=== PATIENT | female | born 1995 | race African-American/Black ===

== ENCOUNTER 2018-11-13 08:50 | Observation (INO) | payer BC ==
--- NOTE | 2018-11-13 09:15 | PDOC ---
History of Present Illness - General Chief Complaint: Abscess Boil Stated Complaint: BLISTERS Time Seen by Provider: 11/13/18 09:09 History Source: Patient Exam Limitations: No Limitations - History of Present Illness Initial Comments: 11/13/18 09:17 patient came to emergency department for evaluation of blisters/ abscesses to her groin. Suffers from hydroadenitis, but has not had any neck sclerae outbreak in some months. States uses a depilatory cream which frequently causes small folliculitis and small cellulitic lesions that generally break and clear on their own. States onset of to vulvar abscesses started a proximally 2 weeks ago but an additional 1 to the right side under her groin started a proximally 5 days ago and all of them have for aggressively worsened,'s more swollen, and more painful. Is been hot soaking and using some herbal creams with minimal resolved Timing/Duration: unsure Severity: mild, moderate Associated Symptoms: reports: fever/chills, headaches Past History - Travel Traveled outside of the country in the last 30 days: No Close contact w/someone who was outside of country & ill: No - Past Medical History Allergies/Adverse Reactions: Allergies Allergy/AdvReac Type Severity Reaction Status Date / Time No Known Allergies Allergy Verified 11/13/18 08:54 Home Medications: Ambulatory Orders NK [No Known Home Medication] 11/13/18 Asthma: Yes COPD: No - Suicide/Smoking/Psychosocial Hx Smoking History: Never smoked Information on smoking cessation initiated: No Hx Alcohol Use: No Drug/Substance Use Hx: No Review of Systems - Review of Systems Able to Perform ROS?: Yes Is the patient limited Maltese proficient: Yes Constitutional: Yes: Symptoms Reported, See HPI HEENTM: Yes: Symptoms Reported Respiratory: Yes: Symptoms reported, See HPI, Cough, Wheezing Integumentary: Yes: Symptoms Reported, See HPI, Lesions All Other Systems: Reviewed and Negative *Physical Exam - Vital Signs Last Vital Signs Temp Pulse Resp BP Pulse Ox 98.5 F 95 H 17 123/74 100 11/13/18 08:53 11/13/18 08:53 11/13/18 08:53 11/13/18 08:53 11/13/18 08:53 - Physical Exam General Appearance: Yes: Nourished, Appropriately Dressed, Apparent Distress, Mild Distress, Moderate Distress HEENT: positive: MARYAN, Normal ENT Inspection, TMs Normal, Pharynx Normal Neck: positive: Supple, Lymphadenopathy (R), Lymphadenopathy (L). negative: Tender Respiratory/Chest: positive: Decreased Breath Sounds, Rhonchi, Wheezing. negative: Lungs Clear Female Pelvic Exam: positive: other. negative: normal external exam Gastrointestinal/Abdominal: positive: Normal Bowel Sounds, Soft. negative: Guarding, Rebound Musculoskeletal: positive: Normal Inspection Extremity: positive: Normal Capillary Refill Integumentary: positive: Warm, Erythema, Swelling, Other (patient with multiple lesions in various stages of healing, 1 under her umbilicus that is scabbed and approximately 2 cm nonfluctuant. Larger area to the right vulvar/suprapubic with cellulitis and exquisite tenderness non-pointing but Central lesion with some scabbing. Measuring approximately 7 cm induration with an adjacent lesion that is not pointing extending across top part of pubis bone area. 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 Josey Ugalde performed a bedside ultrasound noting 2 distinct areas of abscess subcutaneous to vulva, recommends I and D, Admnission for IV Abx. and Surgery consult. Dr. Cavanaugh/[facility] consulted who deferred to OB/ CLASSROOM MONITOR due to the location of the abscess. Dr. Luna notified who agreed to perform consult and have patient admitted to hospitalist service. Recommended to add Flagyl for IV antibiotics in addition to Clindamyosin. Patient was updated to plan and hospitalist [employer] microblogged. *DC/Admit/Observation/Transfer Diagnosis at time of Disposition: Cellulitis of groin, right - Discharge Dispostion Condition at time of disposition: Stable Decision to Admit order: Yes - Referrals - Patient Instructions - Post Discharge Activity
[2018-11-13] MEDS ORDERED: KETOROLAC TROMETHAMINE 30 MG/1 ML VIAL IVPUSH ONE (09:37)
[2018-11-13] MEDS ORDERED: CLINDAMYCIN 600MG PREMIX IVPB 600 MG/50 ML BAG IVPB ONE ×2 (09:37→09:47)
[2018-11-13] MEDS ORDERED: KETOROLAC TROMETHAMINE 30 MG/1 ML VIAL ONE (09:47)
[2018-11-13 10:12] LABS: BASO % 0.5 % (0-2.0); HEMATOCRIT 38.1 % (32.4-45.2); HEMOGLOBIN 13.5 GM/dL (10.7-15.3); LYMPH % 19.2 % (8-40); MCH 26.2 pg (25.7-33.7); MCHC 35.6 g/dl (32.0-36.0); MEAN CELL VOLUME 73.7 fl (80-96); MEAN PLT VOLUME 8.2 fl (7.5-11.1); MONO % 4.9 % (3.8-10.2); NEUT % 70.4 % (42.8-82.8); PLATELET COUNT 315 K/MM3 (134-434); RBC 5.17 M/mm3 (3.60-5.2); RDW 16.8 % (11.6-15.6); WHITE BLOOD COUNT 9.7 K/mm3 (4.0-10.0)
[2018-11-13 10:27] LABS: EPI CELLS 6.5 /HPF (FEW); HYALINE CASTS REVIEW /hpf (NEGATIVE); PH,URINE 5.5 (5.0-8.0); URINE APPEARANCE CLEAR; URINE BACTERIA 230.328 /hpf (NEGATIVE); URINE BILIRUBIN NEGATIVE (<2.0 mg/dL); URINE COLOR DK YELLOW; URINE GLUCOSE (UA) NEGATIVE (NEGATIVE); URINE KETONE TRACE (NEGATIVE); URINE LEUK ESTERASE TRACE (NEGATIVE); URINE NITRITE NEGATIVE (NEGATIVE); URINE PROTEIN NEGATIVE (NEGATIVE); URINE RBC 5 /hpf (0-3); URINE WBC 10 /hpf (3-5)
[2018-11-13 10:47] LABS: ALBUMIN 3.4 g/dl (3.4-5.0); ALK PHOS 85 U/L (45-117); ANION GAP 6 MMOL/L (8-16); BILIRUBIN,TOTAL 0.8 mg/dL (0.2-1); BLOOD UREA NITROGEN 10 mg/dL (7-18); CALCIUM 8.7 mg/dL (8.5-10.1); CHLORIDE 106 mmol/L (98-107); CO2 28 mmol/L (21-32); CREATININE 0.8 mg/dL (0.55-1.3); GLUCOSE,RANDOM 91 mg/dL (74-106); POTASSIUM 3.7 mmol/L (3.5-5.1); SGOT/AST 21 U/L (15-37); SGPT/ALT 45 U/L (13-61); SODIUM 139 mmol/L (136-145); TOT PROT 7.7 g/dl (6.4-8.2)
--- NOTE | 2018-11-13 11:24 | PDOC ---
*Physical Exam - Vital Signs Last Vital Signs Temp Pulse Resp BP Pulse Ox 98.5 F 95 H 17 123/74 100 11/13/18 08:53 11/13/18 08:53 11/13/18 08:53 11/13/18 08:53 11/13/18 08:53 - Physical Exam General Appearance: Yes: Nourished Neck: positive: Trachea midline Respiratory/Chest: positive: Lungs Clear, Normal Breath Sounds Cardiovascular: positive: Regular Rhythm, Regular Rate, S1, S2 Female Pelvic Exam: positive: other (vaginal mons, suprapubic area with right lateral induration, abscess, left side palp induration 2.x 3 in.warmth erythematous) Gastrointestinal/Abdominal: positive: Normal Bowel Sounds, Flat, Soft. negative : Tender Integumentary: positive: Other (abscess see gu above) ED Treatment Course - LABORATORY CBC & Chemistry Diagram: 11/13/18 10:00 11/13/18 10:00 - ADDITIONAL ORDERS Additional order review: Laboratory Results 11/13/18 11/13/18 11/13/18 10:00 10:00 10:00 Sodium 139 Potassium 3.7 Chloride 106 Carbon Dioxide 28 Anion Gap 6 L BUN 10 Creatinine 0.8 Creat Clearance w eGFR 89.69 Random Glucose 91 Calcium 8.7 Total Bilirubin 0.8 AST 21 ALT 45 Alkaline Phosphatase 85 Total Protein 7.7 Albumin 3.4 Urine Color Dk yellow Urine Appearance Clear Urine pH 5.5 Ur Specific [place] 1.036 H Urine Protein Negative Urine Glucose (UA) Negative Urine Ketones Trace H Urine Blood Negative Urine Nitrite Negative Urine Bilirubin Negative Urine Urobilinogen 1.0 Ur Leukocyte Esterase Trace Urine WBC (Auto) 10 Urine RBC (Auto) 5 Urine Casts (Auto) Review A* U Epithel Cells (Auto) 6.5 Urine Bacteria (Auto) 230.328 Urine HCG, Qual Negative 11/13/18 10:00 RBC 5.17 MCV 73.7 L MCHC 35.6 RDW 16.8 H MPV 8.2 Neutrophils % 70.4 Lymphocytes % 19.2 Monocytes % 4.9 Eosinophils % 5.0 H Basophils % 0.5 - Medications Given in the ED: ED Medications Discontinued Medications Generic Name Dose Route Start Last Admin Trade Name Freq PRN Reason Stop Dose Admin Clindamycin Phosphate 600 mg in 50 mls @ 100 mls/hr 11/13/18 09:37 11/13/18 10:10 Cleocin 600 Mg Premix Ivpb - IVPB 11/13/18 10:06 100 mls/hr ONCE ONE Administration Protocol Ketorolac Tromethamine 30 mg 11/13/18 09:37 11/13/18 10:10 Toradol Injection - IVPUSH 11/13/18 09:38 30 mg ONCE ONE Administration Medical Decision Making - Medical Decision Making 11/13/18 11:20 23 yo F with h/o asthma, hydradenitis, works as a medical liaison, here with c /o suprapubic, vaginal pain, abscess. states has had to have other abscess drained in past. no f/c no urinary complaints. pt has had it for several days. on exam mons suprapubic area with mulitple areas of induration. right upper mons with fluctuance, and purulence noted, some drainage on skin. left area with lateral induration 2. x 3 cm. focused ultrasound soft tissue performed. indication: eval extent abscess two focal collection noted with surrounding cobblestoning. right with well circumscribed lesion , anechoic . fluid collection measuring 1.2 x 0.7 cm x 1 cm .35 cm from surface. second left sided lesion much more superficial measuring 2 x 3 cm . impression: bilateral abscesses. case d/w dr Luna, recommend admission to hospital IV abx. focused I& D performed at bedside. will treat with clindamycin as high risk for mrsa works in healthcare. admit to hospitalist for observation iv abx. 11/13/18 11:24 pt seen with tripp maldonado, agree with assessment and plan. 11/13/18 16:47 pt I& D performed at bedside, small purulence expresse 2 cc right abscess, serosang from left sided abscess. cultures sent. *DC/Admit/Observation/Transfer Diagnosis at time of Disposition: Cellulitis of groin, right, Abscess of suprapubic region - Discharge Dispostion Condition at time of disposition: Stable - Referrals - Patient Instructions - Post Discharge Activity
[2018-11-13] MEDS ORDERED: ALBUTEROL SO4 0.083% IH SOL 2.5 MG/3 ML VIAL.NEB. NEB PRN (12:30)
--- NOTE | 2018-11-13 12:48 | HP ---
CHIEF COMPLAINT: PCP: HISTORY OF PRESENT ILLNESS: 23 yo F with PMHx of asthma and hyrdoaddenitis presents with two week history suprapubic abscess. She states that two weeks prior she started with small" bumps" in her suprapubic region. 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 They continued to progress in size and when she was re-assessed by MD at urgent care he recommended to go to ER fro drainage. She denies fever, chills, drainage or vaginal discharge. Denies CP,HILLMAN, SOB, palpitations, or abdominal pain. ER course was notable for: (1)bedside US shows two distinct abscesses (2)I&D preformed in ER (3)[place] and Clinda given in ER. Recent Travel: PAST MEDICAL HISTORY:asthma PAST SURGICAL HISTORY: hydroadenitis drainage on right breast. Social History: Smoking:denies Alcohol:denies Drugs: denies Family History: Allergies No Known Allergies Allergy (Verified 11/13/18 08:54) HOME MEDICATIONS: Home Medications Medication Instructions Recorded NK [No Known Home Medication] 11/13/18 REVIEW OF SYSTEMS CONSTITUTIONAL: Absent: fever, chills, diaphoresis, generalized weakness, malaise, loss of appetite, weight change HEENT: Absent: rhinorrhea, nasal congestion, throat pain, throat swelling, difficulty swallowing, mouth swelling, ear pain, eye pain, visual changes CARDIOVASCULAR: Absent: chest pain, syncope, palpitations, irregular heart rate, lightheadedness , peripheral edema RESPIRATORY: Absent: cough, shortness of breath, dyspnea with exertion, orthopnea, wheezing, stridor, hemoptysis GASTROINTESTINAL: Absent: abdominal pain, abdominal distension, nausea, vomiting, diarrhea, constipation, melena, hematochezia GENITOURINARY: Absent: dysuria, frequency, urgency, hesitancy, hematuria, flank pain, genital pain MUSCULOSKELETAL: Absent: myalgia, arthralgia, joint swelling, back pain, neck pain SKIN: Absent: rash, itching, pallor HEMATOLOGIC/IMMUNOLOGIC: Absent: easy bleeding, easy bruising, lymphadenopathy, frequent infections ENDOCRINE: Absent: unexplained weight gain, unexplained weight loss, heat intolerance, cold intolerance NEUROLOGIC: Absent: headache, focal weakness or paresthesias, dizziness, unsteady gait, seizure, mental status changes, bladder or bowel incontinence PSYCHIATRIC: Absent: anxiety, depression, suicidal or homicidal ideation, hallucinations. PHYSICAL EXAMINATION Vital Signs - 24 hr 11/13/18 11/13/18 08:53 12:24 Temperature 98.5 F Pulse Rate 95 H Respiratory 17 Rate Blood Pressure 123/74 O2 Sat by Pulse 100 100 Oximetry (%) GENERAL: AAOx3, NAD HEAD: NCAT EYES: PERRLA,EOMI sclera anicteric, conjunctiva clear. No lid lag. EARS, NOSE, THROAT: Moist mucous membranes. LUNGS: CTAB. No wheezes, and no crackles. No accessory muscle use. HEART: RRR, normal S1 and S2 without murmur, rub or gallop. ABDOMEN: Soft, obese, NTND,NABS, no guarding, no rebound, no masses. No hepatomegaly or splenomegaly. : 2 suprapubic fluctuant abscesses largest on right measuring approx 3x1 cm smaller 1x1cm, very tender to palpation, erythema and warmth MUSCULOSKELETAL: Normal range of motion at all joints. No bony deformities or tenderness. No CVA tenderness. UPPER EXTREMITIES: 2+ pulses, warm, well-perfused. No cyanosis. No clubbing. No peripheral edema. LOWER EXTREMITIES: 2+ pulses, warm, well-perfused. No calf tenderness. No peripheral edema. NEUROLOGICAL: Cranial nerves II-XII intact. Normal speech. PSYCHIATRIC: Cooperative. Good eye contact. Appropriate mood and affect. SKIN: Warm, dry, normal turgor, no rashes or lesions noted, normal capillary refill. Laboratory Results - last 24 hr 11/13/18 11/13/18 11/13/18 10:00 10:00 10:00 WBC 9.7 RBC 5.17 Hgb 13.5 Hct 38.1 MCV 73.7 L MCH 26.2 MCHC 35.6 RDW 16.8 H Plt Count 315 MPV 8.2 Absolute Neuts (auto) 6.8 Neutrophils % 70.4 Lymphocytes % 19.2 Monocytes % 4.9 Eosinophils % 5.0 H Basophils % 0.5 Nucleated RBC % 0 Sodium 139 Potassium 3.7 Chloride 106 Carbon Dioxide 28 Anion Gap 6 L BUN 10 Creatinine 0.8 Creat Clearance w eGFR 89.69 Random Glucose 91 Calcium 8.7 Total Bilirubin 0.8 AST 21 ALT 45 Alkaline Phosphatase 85 Total Protein 7.7 Albumin 3.4 Urine Color Dk yellow Urine Appearance Clear Urine pH 5.5 Ur Specific [place] 1.036 H Urine Protein Negative Urine Glucose (UA) Negative Urine Ketones Trace H Urine Blood Negative Urine Nitrite Negative Urine Bilirubin Negative Urine Urobilinogen 1.0 Ur Leukocyte Esterase Trace Urine WBC (Auto) 10 Urine RBC (Auto) 5 Urine Casts (Auto) Review A* U Epithel Cells (Auto) 6.5 Urine Bacteria (Auto) 230.328 Urine RBC No Result Required. Pathogenic Casts Urine HCG, Qual 11/13/18 10:00 WBC RBC Hgb Hct MCV MCH MCHC RDW Plt Count MPV Absolute Neuts (auto) Neutrophils % Lymphocytes % Monocytes % Eosinophils % Basophils % Nucleated RBC % Sodium Potassium Chloride Carbon Dioxide Anion Gap BUN Creatinine Creat Clearance w eGFR Random Glucose Calcium Total Bilirubin AST ALT Alkaline Phosphatase Total Protein Albumin Urine Color Urine Appearance Urine pH Ur Specific [place] Urine Protein Urine Glucose (UA) Urine Ketones Urine Blood Urine Nitrite Urine Bilirubin Urine Urobilinogen Ur Leukocyte Esterase Urine WBC (Auto) Urine RBC (Auto) Urine Casts (Auto) U Epithel Cells (Auto) Urine Bacteria (Auto) Urine RBC Pathogenic Casts Urine HCG, Qual Negative ASSESSMENT/PLAN: 23 yo F with PMHx of asthma and hyrdoaddenitis presents with two week history suprapubic abscess. She states that two weeks prior she started with small" bumps" in her suprapubic region placed on observation for I&D and IV abx. Problem List - Problem (1) Abscess of suprapubic region Assessment/Plan: I&D in ER * Given Clinda and Metronidazole x1 * Will continue with Clindamycin 300mg IV Q8H * cultures pending. (2) Obesity (BMI 30.0-34.9) Assessment/Plan: counseled on the importance of losing weight. * Counseled on the health impact being overweight has * Will obtain HgbA1C to r/o DM Visit type - Emergency Visit Emergency Visit: Yes ED Registration Date: 11/13/18 Care time: The patient presented to the Emergency Department on the above date and was hospitalized for further evaluation of their emergent condition. - New Patient This patient is new to me today: Yes Date on this admission: 11/13/18 - Critical Care Critical Care patient: No
[2018-11-13] MEDS ORDERED: LIDOCAINE HCL 1%, 10 MG/ML (50 mL VIAL) SQ ONE (13:04)
[2018-11-13] MEDS ORDERED: LIDOCAINE HCL 1%, 10 MG/ML (20ML VIAL) ONE (13:07)
[2018-11-13 14:53] VITALS: BMI 35.9
[2018-11-13] MEDS ORDERED: AMPICILLIN NA/SULBACTAM NA 3 GM in SODIUM CHLORIDE 100 ML IVPB SCH (15:00)
--- NOTE | 2018-11-13 15:21 | PN ---
Teaching Attending Note Name of Resident: Mario Chiu ATTENDING PHYSICIAN STATEMENT I saw and evaluated the patient. I reviewed the resident's note and discussed the case with the resident. I agree with the resident's findings and plan as documented. SUBJECTIVE: CC; bumps on suprapubic area HPI: 23 y/o lady with h/o asthma, and axillary hydradinitis suppurativa who presented with feeling lesions on suprapubic area. she has developed bumps on her suprapubic area x 1 week. after using warm compresses she did not get better. no recent use of Abx. she reports no fever or chills. in past she had axillary hydradenitis suppurativa and was treated with Abx, and had drainage of the lesions under her L breast. she is not aware of the results of her wound cx . she denies any discharge form vagina or spotting or pain. no dysuria. reports diarrhea 5 time yesterday and twice today with more formed stool today. Abd cramps with BM . OBJECTIVE: NAD . obese, awake. alert , oriented and coopeartive HEENT: MMM, EOMI, round pupils, equal . no facial droop. Cv: RRR, no MRG Lungs: CTAB Ext: no edema , no erythema. no signs of fungal infection in interdigital webs. Abd: obese, soft, NT, ND , NL BS. : normal hair distribution. no discharge form vagina, no lesions on labia . R sided suprapubic indurated area with visible white head and L sided suprapubic smaller area with induration but no fluctuation . no increased warmth . no erythema ASSESSMENT AND PLAN: 23 y/o lady with h/o asthma, and axillary hydradinitis suppurativa who presented with lesions on suprapubic area, and was found to have suprapubic abscess 1- Hydradenitis suppurativa with suprapubic abscess. s/p I&D of R sided abscess in ER. cx was sent - given zosyn and flagyl in ER. - will substitute clinda 300 mg q 8 hrs ( unasyn is on back order) - follow cx. - likely can switch to Augmentin and bactrim x 10 days tomorrow - check A1c. - hygiene 2- h/o Asthma. PRN Albuterol inhaler Dispo: possible dc tomorrow.
[2018-11-13] MEDS ORDERED: AMOX TR/POT CLAV 875MG/125MG TABLETS (FP) PO SCH (17:30)
[2018-11-13] MEDS: CLINDAMYCIN 300 MG PREMIX IVPB 300 MG/50 ML BAG IVPB SCH (18:14)
[2018-11-13] MEDS ORDERED: PT OWN MED DRAWER 7, Y5N ONE (19:04)
[2018-11-13] MEDS ORDERED: SULFAMETHOXAZOLE/TRIMETHOPRIM 800MG/160MG D.S. TABLET PO SCH (22:00)
[2018-11-14] MEDS: CLINDAMYCIN 300 MG PREMIX IVPB 300 MG/50 ML BAG IVPB SCH ×3 (03:03→17:19)
[2018-11-14 08:32] LABS: BASO % 0.8 % (0-2.0); EOS % 8.7 % (0-4.5); HEMATOCRIT 36.4 % (32.4-45.2); HEMOGLOBIN 12.7 GM/dL (10.7-15.3); LYMPH % 25.2 % (8-40); MCH 25.9 pg (25.7-33.7); MEAN CELL VOLUME 73.9 fl (80-96); MONO % 5.5 % (3.8-10.2); NEUT % 59.8 % (42.8-82.8); PLATELET COUNT 296 K/MM3 (134-434); RBC 4.93 M/mm3 (3.60-5.2); RDW 16.6 % (11.6-15.6); WHITE BLOOD COUNT 6.9 K/mm3 (4.0-10.0)
[2018-11-14 08:55] LABS: ALK PHOS 80 U/L (45-117); ANION GAP 6 MMOL/L (8-16); BILIRUBIN,TOTAL 0.6 mg/dL (0.2-1); BLOOD UREA NITROGEN 8 mg/dL (7-18); CALCIUM 8.2 mg/dL (8.5-10.1); CHLORIDE 108 mmol/L (98-107); CO2 27 mmol/L (21-32); CREATININE 0.9 mg/dL (0.55-1.3); GLUCOSE,RANDOM 86 mg/dL (74-106); MAGNESIUM 1.9 mg/dL (1.8-2.4); POTASSIUM 4.3 mmol/L (3.5-5.1); SGOT/AST 24 U/L (15-37); SGPT/ALT 48 U/L (13-61); SODIUM 140 mmol/L (136-145); TOT PROT 6.8 g/dl (6.4-8.2)
[2018-11-14] MEDS ORDERED: PT OWN MED DRAWER 7, Y5N ONE (11:23)
--- NOTE | 2018-11-14 11:56 | PN ---
Physical Exam: SUBJECTIVE: Patient seen and examined at bedside-no acute events overnight patient states that she is feeling well and is no longer having pain; denies any N/V/fevers or chills OBJECTIVE: Vital Signs Period Temp Pulse Resp BP Sys/Jarquin Pulse Ox Last 24 Hr 97.4 F-98.6 F 69-84 16-20 101-152/59-82 100-100 GENERAL: The patient is awake, alert, and fully oriented, in no acute distress. EYES: PEERLA; EOMI; no scleral ictuers NECK: no JVD; no lymphadenopathy LUNGS: CTA B/L; no rales, rhonchi or wheezing HEART: Regular rate and rhythm, S1, S2 without murmur, rub or gallop. ABDOMEN: Soft, nontender; nondistended +BS in all 4 quadrants : 2 right/midline suprapubic abscesses; no fluctuance; no discharge; non erythamtous non tender upon palpation EXTREMITIES: warm; well-perfused;no clubbing/cyanosis or edema PSYCH: Normal mood, normal affect. SKIN: Warm, dry, normal turgor, no rashes or lesions noted Laboratory Results - last 24 hr 11/13/18 11/13/18 11/14/18 10:00 10:00 08:10 WBC 6.9 RBC 4.93 Hgb 12.7 Hct 36.4 MCV 73.9 L MCH 25.9 MCHC 35.0 RDW 16.6 H Plt Count 296 MPV 8.0 Absolute Neuts (auto) 4.1 Neutrophils % 59.8 Lymphocytes % 25.2 D Monocytes % 5.5 Eosinophils % 8.7 H Basophils % 0.8 Nucleated RBC % 0 Sodium Potassium Chloride Carbon Dioxide Anion Gap BUN Creatinine Creat Clearance w eGFR Random Glucose Hemoglobin A1c % 5.2 Calcium Phosphorus Magnesium Total Bilirubin AST ALT Alkaline Phosphatase Total Protein Albumin Urine Casts (Auto) Cancelled U Epithel Cells (Auto) Cancelled Urine Crystals (Auto) Cancelled Urine Bacteria (Auto) Cancelled Calcium Oxalate Crystal Cancelled Uric Acid Crystals Cancelled Triple Phos Crystals Cancelled Amorphous Phosphates Cancelled Amorphous Urates Cancelled Amorphous Sediment Cancelled Hyaline Casts Cancelled Granular Casts Cancelled Waxy Casts Cancelled RBC Casts Cancelled WBC Casts Cancelled Urine Mucus Cancelled Urine Other Cancelled Urine Trichomonas Cancelled Urine Yeast (Auto) Cancelled 11/14/18 08:10 WBC RBC Hgb Hct MCV MCH MCHC RDW Plt Count MPV Absolute Neuts (auto) Neutrophils % Lymphocytes % Monocytes % Eosinophils % Basophils % Nucleated RBC % Sodium 140 Potassium 4.3 Chloride 108 H Carbon Dioxide 27 Anion Gap 6 L BUN 8 Creatinine 0.9 Creat Clearance w eGFR 78.29 Random Glucose 86 Hemoglobin A1c % Calcium 8.2 L Phosphorus 3.0 Magnesium 1.9 Total Bilirubin 0.6 AST 24 ALT 48 Alkaline Phosphatase 80 Total Protein 6.8 Albumin 3.0 L Urine Casts (Auto) U Epithel Cells (Auto) Urine Crystals (Auto) Urine Bacteria (Auto) Calcium Oxalate Crystal Uric Acid Crystals Triple Phos Crystals Amorphous Phosphates Amorphous Urates Amorphous Sediment Hyaline Casts Granular Casts Waxy Casts RBC Casts WBC Casts Urine Mucus Urine Other Urine Trichomonas Urine Yeast (Auto) Active Medications Generic Name Dose Route Start Last Admin Trade Name Freq PRN Reason Stop Dose Admin Albuterol Sulfate 1 amp 11/13/18 12:30 Ventolin 0.083% Nebulizer Soln - NEB Q6H PRN SHORT OF BREATH/WHEEZING Clindamycin Phosphate 300 mg in 50 mls @ 100 mls/hr 11/13/18 18:00 11/14/18 11:33 Cleocin 300 Mg Premix Ivpb IVPB 100 mls/hr Q8H-IV MAURY Administration Protocol ASSESSMENT/PLAN: 23 y/o lady with h/o asthma, and axillary hydradinitis suppurativa who presented with lesions on suprapubic area, and was found to have suprapubic abscess 1- Hydradenitis suppurativa with suprapubic abscess. s/p I&D of R sided abscess in ER. cx was sent prelim showing staph latex coagulase positive - given zosyn and flagyl in ER. -switched to clindamycin 300 Q8H - follow sensitivities - likely can switch to Augmentin and bactrim x 10 days tomorrow - HBA1c came back at 5.2. - hygiene 2- h/o Asthma. PRN Albuterol inhaler
[2018-11-14 14:00] VITALS: BP 111/61; PULSE 83; TEMP 98.5
--- NOTE | 2018-11-14 15:15 | DS ---
Physical Exam: SUBJECTIVE:Patient seen and examined at bedside-no acute events overnight patient states that she is feeling well and is no longer having pain; denies any N/V/fevers or chills OBJECTIVE: Vital Signs Period Temp Pulse Resp BP Sys/Jarquin Pulse Ox Last 24 Hr 97.4 F-98.6 F 72-83 16-20 101-152/59-67 100-100 PHYSICAL EXAM GENERAL: The patient is awake, alert, and fully oriented, in no acute distress. EYES: PEERLA; EOMI; no scleral ictuers NECK: no JVD; no lymphadenopathy LUNGS: CTA B/L; no rales, rhonchi or wheezing HEART: Regular rate and rhythm, S1, S2 without murmur, rub or gallop. ABDOMEN: Soft, nontender; nondistended +BS in all 4 quadrants : 2 right/midline suprapubic abscesses; no fluctuance; no discharge; non erythamtous non tender upon palpation EXTREMITIES: warm; well-perfused;no clubbing/cyanosis or edema PSYCH: Normal mood, normal affect. SKIN: Warm, dry, normal turgor, no rashes or lesions noted LABS Laboratory Results - last 24 hr 11/13/18 11/14/18 11/14/18 10:00 08:10 08:10 WBC 6.9 RBC 4.93 Hgb 12.7 Hct 36.4 MCV 73.9 L MCH 25.9 MCHC 35.0 RDW 16.6 H Plt Count 296 MPV 8.0 Absolute Neuts (auto) 4.1 Neutrophils % 59.8 Lymphocytes % 25.2 D Monocytes % 5.5 Eosinophils % 8.7 H Basophils % 0.8 Nucleated RBC % 0 Sodium 140 Potassium 4.3 Chloride 108 H Carbon Dioxide 27 Anion Gap 6 L BUN 8 Creatinine 0.9 Creat Clearance w eGFR 78.29 Random Glucose 86 Hemoglobin A1c % 5.2 Calcium 8.2 L Phosphorus 3.0 Magnesium 1.9 Total Bilirubin 0.6 AST 24 ALT 48 Alkaline Phosphatase 80 Total Protein 6.8 Albumin 3.0 L HOSPITAL COURSE: Date of Admission:11/13/18 23 yo F with PMHx of asthma and hyrdoaddenitis presents with two week history suprapubic abscess. She states that two weeks prior she started with small" bumps" in her suprapubic region. 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 They continued to progress in size and when she was re-assessed by MD at urgent care he recommended to go to ER for drainage. she denies any fevers or chills at home. states that she has had abscess in the past- she has had hydradentiis of the breast which has been drained in the past, and she has also had axillary hydraddenitis.when she came to the ED they drained the two abscesses and cultures were sent- she was started on IV clindamycin q8h. prelim cx showing coagulase positive staph- patient was sent home with bactrim and augmentin for 10 days and was instructed that if her sensitivities come back i will call diff meds to take if needed. also advised to keep area clean and dry and to f/u with her gyno within one week Date of Discharge: 11/14/18 Minutes to complete discharge: 39 Discharge Summary Reason For Visit: CELLULITIS OF RIGHT GROIN Current Active Problems Cellulitis of groin, right (Acute) Obesity (BMI 30.0-34.9) (Chronic) Condition: Improved - Instructions Diet, Activity, Other Instructions: You came to the emergency room with discomfort and pain in you groin region due to abscesses that are present. An incision and drainage was performed and wound cultures were taken. You were started on antibiotics for which you will need to continue for the next 10 days. Please continue taking the following antibiotics for 10 days: Augmentin 875mg twice a day for 10 days (with food) Bactrim twice a day for 10 days If the sensitivities of the culture come back and different antibiotics are needed; will call you and adjust accordingly Please keep the area clean and dry, cover with dry gauze and change at least daily and everytime it gets wet or dirty Please follow up with Dr. Contreras within one week *if you begin to experience more abscess development/worsening pain, chest pains , shortness of breath please return to the emergency room immediately Referrals: Mackenzie Contreras [Other] - 1 Week Disposition: HOME - Home Medications Comprehensive Discharge Medication List: Ambulatory Orders Amoxicillin/Potassium Clav [Augmentin 875-125 Tablet] 1 each PO BID 10 Days #20 tablet 11/14/18 Sulfamethoxazole/Trimethoprim [Bactrim Ds -] 1 tab PO BID 10 Days #20 tablet This patient is new to me today: Yes Date on this admission: 11/14/18 Emergency Visit: Yes ED Registration Date: 11/13/18 Care time: The patient presented to the Emergency Department on the above date and was hospitalized for further evaluation of their emergent condition. Critical Care patient: No - Discharge Referral Referred to [facility] No
--- NOTE | 2018-11-14 15:21 | PN ---
Teaching Attending Note Name of Resident: Marielena Sher ATTENDING PHYSICIAN STATEMENT I saw and evaluated the patient. I reviewed the resident's note and discussed the case with the resident. I agree with the resident's findings and plan as documented. SUBJECTIVE: no fever or chills. No pain in suprapubic area OBJECTIVE: NAD Cv: RRR, no MRG Lungs: CTAB Ext: no edema , no erythema. Abd: obese, soft, NT, ND , NL BS. : normal hair distribution. R sided suprapubic indurated area with a small incision 2 mm in middile with no drainage .no tenserness over L suprapubic area , with decreased induration ASSESSMENT AND PLAN: 23 y/o lady with h/o asthma, and axillary hydradinitis suppurativa who presented with lesions on suprapubic area, and was found to have suprapubic abscess 1- Hydradenitis suppurativa with suprapubic abscess. s/p I&D of R sided abscess . exam improved - cx is growing coag + , there is 50 % chance of MRSA. sensitivities to be back to [place] but patient does not want to wait and would really want to go home. she is compliant and will follow with her PCP will send home on augmentin and bactrim and will follow cx tomorrow. dc home . she will also follow with her [employer]
== END 2018-11-14 19:18 | disposition home or self-care (01) ==
LOC: JERFT 08:50 → JER 08:50 → JERBED 11:35 → J7W 14:18
PROVIDERS: ADMIT Internal Medicine; ATTEND Internal Medicine
PROC: BH48ZZZ Ultrasonography of Lower Extremity (ICD-10-PCS; principal; 2018-11-13)
PROC: 0J9C0ZZ Drainage of Pelvic Region Subcutaneous Tissue and Fascia, Open Approach (ICD-10-PCS; 2018-11-13)
PROC: 3E03329 Introduction of Other Anti-infective into Peripheral Vein, Percutaneous Approach (ICD-10-PCS; 2018-11-13)
PROC: 3E0333Z Introduction of Anti-inflammatory into Peripheral Vein, Percutaneous Approach (ICD-10-PCS; 2018-11-13)
DX: L02.214 Cutaneous abscess of groin (principal); L03.314 Cellulitis of groin; L02.221 Furuncle of abdominal wall; L73.2 Hidradenitis suppurativa; E66.9 Obesity, unspecified; Z68.35 Body mass index [BMI] 35.0-35.9, adult
CPT/HCPCS: 36415; 80053; 81003; 83036; 83735; 84100; 84703; 85025; 87070; 87186; 87205; 99285-25; G0378